=== PATIENT | female | born 1975 | race Caucasian/White ===

== ENCOUNTER 2019-01-02 13:35 | Inpatient (IN) ==
[2019-01-02] MEDS ORDERED: Nitroglycerin 0.4 MG TAB.SUBL SL PRN ×2 (13:42→19:30)
--- NOTE | 2019-01-02 13:44 | Emergency Department Note ---
Disposition Clinical Impression: Chest wall pain, Hypokalemia Disposition: Admitted As Inpatient Condition: Good Time of Disposition: 14:05 Chest Pain HPI - General Chief Complaint: ED Chest Pain Stated Complaint: chest pain Time Seen by Provider: 01/02/19 13:35 Source: patient Mode of arrival: ambulatory Limitations: no limitations Vital Signs Reviewed: Yes Nursing Notes Reviewed: Yes - History of Present Illness HPI Narrative: Patient states she has had chest pain off-and-on for the past 3 days this morning started with some vomiting and her chest pain got worse last 2 hours. H urts if she tries to sit up or move her chest in any direction. Also hurts if she coughs or takes a deep breath. She denies any fevers or chills or any other complaints. Pt complaint: chest pain Onset (ago): day(s) (2 or 3 days) Duration: intermittent Onset: during rest Pain Location: substernal Severity: moderate Quality: sharp Pain Radiation: none Improves with: nothing Worsens with: nothing Associated symptoms: Reports: nausea, vomiting Treatments prior to arrival chest pain: none - Related Data Home Medications Medication Instructions Recorded Confirmed hydrOXYzine HCl [Hydroxyzine HCl] 100 mg PO TID 01/20/16 12/01/17 Bupropion HCl [Wellbutrin Xl] 300 mg PO HS 05/28/16 12/01/17 EPINEPHrine [Epipen] 0.3 mg IM ONCE PRN 05/28/16 12/01/17 Escitalopram [Lexapro] 20 mg PO HS 05/28/16 12/01/17 Metoprolol XL (24 HR) Succ [Toprol 25 mg PO HS 05/28/16 12/01/17 Xl] Sucralfate [Carafate] 1 gm PO BID 05/28/16 12/01/17 Atorvastatin Calcium [Lipitor] 40 PO HS 01/02/19 Buprenorphine HCl/Naloxone HCl 1 each SL DAILY 01/02/19 01/02/19 [Suboxone 2 mg-0.5 mg Sl Film] Buspirone HCl [Buspar] 15 mg PO 01/02/19 Previous Rx's Medication Instructions Recorded Albuterol Sulfate [Albuterol 1 - 2 puff IH Q4HR PRN #1 03/06/15 Inhaler] [email or web address] SUMAtriptan succinate [Imitrex] 25 mg PO ONCE PRN #4 tablet 10/26/16 Ciprofloxacin HCl [Cipro] 500 mg PO DAILY 10 Days #10 tablet 01/31/18 Allergies Allergy/AdvReac Type Severity Reaction Status Date / Time Benzonatate Allergy Palpitation Verified 01/02/19 13:37 [From Tessalon Perles] s diphenhydramine Allergy Hives Verified 01/02/19 13:37 [From Benadryl] Penicillins [PCN] Allergy Anaphylaxis Verified 01/02/19 13:37 red dye Allergy Hives Verified 01/02/19 13:37 aspirin [ASA] AdvReac Nausea Verified 01/02/19 13:37 clindamycin AdvReac joint Verified 01/02/19 13:37 swelling nicotine AdvReac Rash Verified 01/02/19 13:37 sertraline [From Zoloft] AdvReac Rash Verified 01/02/19 13:37 All systems ED: reviewed and negative except as stated. Review of Systems: As Per HPI Constitutional: Denies: fever, chills, weakness, weight change Eyes: Denies: eye pain, eye discharge, vision change ENT ED: Denies: ear pain, throat pain, dental pain, hearing loss, epistaxis, congestion, dysphagia Cardiovascular: Reports: as per HPI, chest pain Respiratory: Denies: cough, dyspnea, wheezes, hemoptysis, stridor Gastrointestinal: Reports: as per HPI, nausea, vomiting Genitourinary: Denies: dysuria, frequency, hematuria, discharge Musculoskeletal: Denies: back pain, neck pain, arthralgia, myalgia Integumentary: Denies: rash, abrasion, lesions Neurological: Denies: headache, weakness, numbness, paresthesias, confusion, abnormal gait, vertigo Psychiatric: Denies: anxiety, depression, suicidal thoughts, homicidal thoughts, auditory hallucinations, visual hallucinations Endocrine: Denies: fatigue Hematological/Lymphatic: Denies: easy bleeding, easy bruising Allergic/Immunologic: Denies: facial swelling, urticaria Chest Pain PMH - Past Medical History Medical history: Reports: asthma, COPD, other Surgical history: Reports: appendectomy, , hysterectomy, knee replacement Psychiatric history: Reports: anxiety, bipolar, depression, PTSD PROC TECH history: Reports: bilateral tubal ligation - Social History Smoking Status: Current every day smoker Alcohol use: Reports: none Drug use: Reports: none Physical Exam - General Limitations: no limitations General appearance: alert, in no apparent distress - Head Head exam: atraumatic, normocephalic, normal inspection - Eye Eye exam: Present: normal appearance, PERRL, EOMI - ENT ENT exam: normal exam, normal oropharynx, mucous membranes moist - Neck Neck exam: Present: normal inspection, full ROM, trachea midline - Chest Chest inspection: Present: normal inspection, symmetric chest wall rise, tenderness (Chest pain is 100% reproducible with deep breathing or palpation and movement.) - Respiratory Respiratory exam: Present: normal lung sounds bilaterally - Cardiovascular Cardiovascular exam: Present: regular rate, normal rhythm - Abdominal Exam Abdominal exam: Present: soft, Non-Tender. Absent: tenderness, distention, guarding, rebound, rigidity - Extremities Exam Extremities exam: Present: normal inspection, full ROM. Absent: tenderness, pedal edema - Back Exam Back exam: Present: normal inspection, full ROM. Absent: tenderness - Neurological Exam Neurological exam: Present: alert, oriented X3 - Psychiatric Psychiatric exam: Present: normal affect, normal mood - Skin Skin exam: Present: warm, dry, intact, normal color Chest Pain - MDM Narrative Medical decision making narrative: I reviewed the patient's medication list Case was discussed with Dr. Alford's who has graciously accepted admission After being here for approximately an hour says she fell 3 days ago mass or chest pain started and she has some paresthesias in her right leg. She denies any leg pain or hip pain or back pain. The patient is very nonspecific and changes her story frequently. I did order a CAT scan of her head since she said she fell and hit her head and it is negative. I do not currently appreciate any neurovascular deficits in lower extremities - Lab Data Lab results reviewed: Yes I reviewed the patient's lab results. - Radiology Data Radiology results reviewed: Yes I reviewed the patient's radiology results. - EKG Data EKG attestation: Yes I reviewed and interpreted this EKG. EKG results narrative: EKG shows normal sinus rhythm rate 97 bpm IN interval is 189 ms QRS duration 94 ms QTQTC intervals 382 and 486 ms respectively R axis of [address] elevation. Abnormalities in the t waves and ST depression noted.
[2019-01-02] MEDS ORDERED: 0.9 % Sodium Chloride 1,000 ML IVC SCH (13:45)
[2019-01-02 13:58] LABS: Basophils # 0.1 K/mcL (0.0-0.2); Basophils % 0.5 %; Eosinophils % 0.1 %; Hemoglobin 14.4 g/dL (11.5-15.4); Immature Granulocytes % 0.6 % (0-4); Lymphocytes # 2.3 K/mcL (0.6-4.6); Lymphocytes % 23.7 %; Mean Corpuscular Hemoglobin 28.7 pg (28.0-33.3); Mean Corpuscular Volume 79.8 fL (83.0-100.0); Mean Platelet Volume 9.2 fL (9.4-12.4); Monocytes # 0.6 K/mcL (0.0-1.3); Monocytes % 5.9 %; Neutrophils # 6.6 K/mcL (1.6-8.9); Platelet Count 316 K/mcL (140-400); Red Blood Count 5.01 M/mcL (3.82-4.97); Red Cell Distribution Width 13.5 % (11.5-14.5); Segmented Neutrophils % 69.2 %; White Blood Count 9.6 K/mcL (4.3-11.1)
[2019-01-02 14:06] LABS: INR 1.1; Prothrombin Time 12.9 Seconds (9.4-12.1)
[2019-01-02 14:09] LABS: Activated Partial Thrombo Time 35.2 Seconds (26.0-36.0)
[2019-01-02 14:19] LABS: Alanine Aminotransferase 19 Units/L (7-52); Albumin 3.6 g/dL (3.5-5.7); Albumin/Globulin Ratio 1.2 (1.1-2.2); Alkaline Phosphatase 70 Units/L (34-104); Aspartate Amino Transferase 21 Units/L (13-39); BUN/Creatinine Ratio 15 (6-26); Bilirubin,Total 0.4 mg/dL (0.3-1.0); Blood Urea Nitrogen 10 mg/dL (6-20); Calcium 8.8 mg/dL (8.6-10.3); Carbon Dioxide 22 mEq/L (23-29); Chloride 99 mEq/L (98-107); Globulin 2.9 g/dL (2.4-3.5); Glucose 169 mg/dL (70-105); Osmolality,Calculated 279 (280-300); Sodium 133 mEq/L (136-145); Total Protein 6.5 g/dL (6.4-8.9); Troponin I < 0.03 ng/mL (< 0.04); eGFR For African Americans > 60 (> 60); eGFR For Non-African Americans > 60 (> 60)
[2019-01-02 14:40] LABS: Bilirubin,Urine Small (Negative); Blood,Urine Moderate (Negative); Clarity,Urine Cloudy (Clear); Color,Urine Dark Yellow (Yellow); Glucose,Urine (UA) Normal (Normal); Ketones,Urine Trace mg/dL (Negative); Leukocyte Esterase,Urine Small (Negative); Nitrite,Urine Negative (Negative); PH,Urine 6.5 pH Units (5.0-8.0); Protein,Urine 100 mg/dL (Neg-Trace); Urobilinogen,Urine Normal (Normal)
[2019-01-02 14:47] LABS: Squamous Epithelial Cell,Urine Few per lpf (None-Few); WBC,Urine TNTC per hpf (0-3)
[2019-01-02 14:48] LABS: Bacteria,Urine Moderate per hpf (None-Few)
[2019-01-02] MEDS ORDERED: Naloxone 0.4 MG/ML INJ IVP PRN (19:30)
[2019-01-02] MEDS ORDERED: SUMAtriptan succinate 25 MG TABLET PO PRN (19:30)
[2019-01-02] MEDS ORDERED: Metoprolol XL (24 HR) Succ 25 MG TAB.ER.24H PO SCH (21:00)
[2019-01-02] MEDS: BuPROPion XL (24 HR) 150 MG TABLET PO SCH (21:03)
[2019-01-02] MEDS: Sucralfate 1 GM TABLET PO SCH (21:04)
[2019-01-03 07:35] LABS: Basophils # 0.1 K/mcL (0.0-0.2); Basophils % 0.6 %; Eosinophils # 0.1 K/mcL (0.0-0.6); Eosinophils % 0.8 %; Hematocrit 39.2 % (35.3-44.9); Hemoglobin 13.7 g/dL (11.5-15.4); Immature Granulocytes % 0.6 % (0-4); Lymphocytes # 3.7 K/mcL (0.6-4.6); Lymphocytes % 42.2 %; Mean Corpuscular HGB Conc 34.9 g/dL (31.6-35.5); Mean Corpuscular Hemoglobin 28.2 pg (28.0-33.3); Mean Corpuscular Volume 80.7 fL (83.0-100.0); Mean Platelet Volume 9.8 fL (9.4-12.4); Monocytes # 0.6 K/mcL (0.0-1.3); Monocytes % 7.2 %; Neutrophils # 4.2 K/mcL (1.6-8.9); Platelet Count 340 K/mcL (140-400); Red Blood Count 4.86 M/mcL (3.82-4.97); Red Cell Distribution Width 13.5 % (11.5-14.5); Segmented Neutrophils % 48.6 %; White Blood Count 8.7 K/mcL (4.3-11.1)
[2019-01-03 08:03] LABS: BUN/Creatinine Ratio 16 (6-26); Blood Urea Nitrogen 9 mg/dL (6-20); Calcium 8.5 mg/dL (8.6-10.3); Carbon Dioxide 24 mEq/L (23-29); Chloride 104 mEq/L (98-107); Glucose 133 mg/dL (70-105); Osmolality,Calculated 285 (280-300); Potassium 2.3 mEq/L (3.5-5.1); Sodium 137 mEq/L (136-145); eGFR For African Americans > 60 (> 60); eGFR For Non-African Americans > 60 (> 60)
[2019-01-03] MEDS ORDERED: Potassium Chloride 40 MEQ, Lidocaine 1% 2 ML in D5% in Water 500 ML IVPB ONE ×2 (08:21→19:13)
[2019-01-03] MEDS: Sucralfate 1 GM TABLET PO SCH ×2 (08:59→19:57)
[2019-01-03] MEDS: 0.9 % Sodium Chloride 1,000 ML IVC SCH ×2 (09:24→17:38)
--- NOTE | 2019-01-03 11:06 | Internal Med History&Physical ---
Date of Encounter: 01/03/19 Time of Encounter: 10:00 Assessment and Plan (1) Hypokalemia Current visit: Yes Status: Acute Suspect due to GI loss from vomiting and diarrhea. Supplemental potassium has been ordered (2) Syncope Current visit: Yes Status: Acute Blood pressure borderline low. Toprol has been discontinued. IV fluids with potassium have been ordered. Orthostatic vital signs will be checked. Qualifiers: Syncope type: unspecified Qualified Code(s): R55 - Syncope and collapse (3) Hypertension Current visit: Yes Status: Chronic Blood pressure now borderline low. Discontinue Toprol and give IV fluids. Qualifiers: Hypertension type: essential hypertension Qualified Code(s): I10 - Es sential (primary) hypertension (4) Weight loss Current visit: Yes Status: Acute TSH and CT of chest/abdomen/pelvis have been ordered. (5) COPD (chronic obstructive pulmonary disease) Current visit: Yes Status: Chronic Room air oximetry will be checked on 6 minute walk prior to discharge. Qualifiers: COPD type: unspecified COPD Qualified Code(s): J44.9 - Chronic obstructive pulmonary disease, unspecified (6) Chest wall pain Current visit: Yes Status: Acute NSAIDs will be ordered. (7) Microcytosis Current visit: Yes Status: Acute Iron profile will be ordered. Internal Medicine - H&P: HPI Chief complaint: Chest pain, dyspnea, syncope Admitted From: Emergency Dept Plans for Post Hospital Care: Home History of present illness: Ms. Carolina is a 43 year old female who came to emergency room stating she had increased dyspnea for the past week with marked worsening earlier the day of admission. She reports some discomfort in her chest that she describes as a sharp pain worse with coughing or deep inspiration. She has had minimal cough. She reports vomiting approximately 3 times earlier the day of admission and a small amount of diarrhea the last 3 days. She was evaluated in emergency room and was found to have severe hypokalemia with potassium level 2.0. She was [facility] for ongoing care needs. She reports syncopal episodes 1-2 times per week over the last 6 weeks. She has no premonition except she feels "tired" prior to the syncope. She reports her most recent episode was 3 days prior to admission which caused her to fall on the floor at home. She reports having a headache and left shoulder discomfort with right leg numbness following the event. She denies leg weakness. Her neurologic history is pertinent for having a "stroke" 2007 but full recovery within the next 2 years and no residual deficits. She denies known seizures. Past Med Surg Social Fam HX - Past Medical History Medical history: asthma, COPD, other Additional medical history: left knee problem and needs replacement Psychiatric history: anxiety, bipolar, depression, PTSD - Past Surgical History Surgical History: appendectomy, , hysterectomy, knee replacement Additional surgical history: tubal ligation. kidney stones. tooth extraction. tonsillectomy. facial reconstruction. ACL repair. sinus surgery. lt knee surgery uterine cancer with hyst - Social History Smoking Status: Current every day smoker Smokeless Tobacco Status: No Alcohol use: none Drug use: other Internal Medicine - H&P: Meds Albuterol Sulfate [Albuterol Inhaler] 1 - 2 puff IH Q4HR PRN #1 [email or web address] 03/06 [Rx] hydrOXYzine HCl [Hydroxyzine HCl] 100 mg PO TID 01/20/16 [History] Bupropion HCl [Wellbutrin Xl] 300 mg PO HS 05/28/16 [History] EPINEPHrine [Epipen] 0.3 mg IM ONCE PRN 05/28/16 [History] Escitalopram [Lexapro] 20 mg PO HS 05/28/16 [History] Metoprolol XL (24 HR) Succ [Toprol Xl] 25 mg PO HS 05/28/16 [History] Sucralfate [Carafate] 1 gm PO BID 05/28/16 [History] SUMAtriptan succinate [Imitrex] 25 mg PO ONCE PRN #4 tablet 10/26/16 [Rx] Ciprofloxacin HCl [Cipro] 500 mg PO DAILY 10 Days #10 tablet 01/31/18 [Rx] Atorvastatin Calcium [Lipitor] 40 PO HS 01/02/19 [History] Buprenorphine HCl/Naloxone HCl [Suboxone 2 mg-0.5 mg Sl Film] 1 each SL DAILY 01/02/19 [History] Buspirone HCl [Buspar] 15 mg PO 01/02/19 [History] Allergy/AdvReac Type Severity Reaction Status Date / Time Benzonatate Allergy Palpitation Verified 01/02/19 13:37 [From Samuel Blank] s diphenhydramine Allergy Hives Verified 01/02/19 13:37 [From Benadryl] Penicillins [PCN] Allergy Anaphylaxis Verified 01/02/19 13:37 red dye Allergy Hives Verified 01/02/19 13:37 aspirin [ASA] AdvReac Nausea Verified 01/02/19 13:37 clindamycin AdvReac joint Verified 01/02/19 13:37 swelling nicotine AdvReac Rash Verified 01/02/19 13:37 sertraline [From Zoloft] AdvReac Rash Verified 01/02/19 13:37 All Systems PM: A 10-system review of systems was performed and is negative for pertinent findings except as documented above in the HPI. Review of systems: Gen.: She states her weight has decreased from 265 pounds one year ago to present weight approximately 190. Weight loss was unintentional. Cardiovascular: She has history of hypertension and reports IL approximately 2009. She states a stress test was done post IL with no further intervention recommended. She reports predictable chest pain on exertion that she describes as a "elephant on my chest". She denies DVT or pulmonary embolus Respiratory: She has smoked since age 27 up to 2 packs per day. She reports being diagnosed with COPD/emphysema and asthma. She does not use home oxygen. GI: She reports stomach ulcers found on EGD in 2000. She takes Carafate and omeprazole. She reports asymptomatic gallstones. She denies disorders of her liver or exocrine pancreas : She has had kidney stones in the past requiring surgical removal. She denies other kidney or bladder disorders. Neurologic: As per history of present illness Endocrine: She reports gestational diabetes. She denies known thyroid disease. She is on Lipitor but does not know her lipid status. Hematology/oncology: She reports uterine cancer with hysterectomy followed by XRT at age 22. She is presumed cancer free. She denies other internal malignancies or blood disorders. Psychiatric: She reports PTSD and bipolar disorder. [place] skeletal: She has had left knee surgery and right foot fracture requiring surgical repair. She denies gout or other bone joint or muscle disorders. - Constitutional Vitals: Temp Pulse Resp BP Pulse Ox 98.5 F 68 16 94/63 98 01/03/19 10:43 01/03/19 10:43 01/03/19 10:43 01/03/19 10:43 01/03/19 10:43 Exam: Gen.: She is a well-developed well-nourished female lying in bed who appears in no severe distress at present time HEENT: Head is atraumatic and normocephalic. Eyes: EOMI. There is no scleral icterus. Mouth: Mucosa is moist. She is edentulous. Neck: Supple and nontender. There is no thyromegaly or adenopathy noted. Heart: Regular without murmurs gallops or ectopics Chest: She is tender in her chest wall to compression stating "that is the pain" Lungs: No wheezes or crackles are heard. Abdomen: Soft and nontender. No masses or guarding are noted. Extremities: There is no cyanosis edema or clubbing noted. Dorsalis pedis and posterior tibial pulses are trace to 1+ palpable bilaterally. Neurologic: Mental status: She is talkative and a good historian. Cranial nerves: Smile is symmetric. Forehead wrinkles bilaterally. Tongue protrudes midline. EOMI. Motor: There is no pronator drift. Cerebellar: Finger to nose is intact bilaterally. Skin: Warm and dry. She has multiple tattoos. Internal Med - H&P Results - Labs CBC & Chem 7: 01/03/19 07:30 01/03/19 07:30 Labs: Short CBC 01/02/19 01/03/19 Range/Units 13:52 07:30 WBC 9.6 8.7 (4.3-11.1) K/mcL Hgb 14.4 13.7 (11.5-15.4) g/dL Hct 40.0 39.2 (35.3-44.9) % Plt Count 316 340 (140-400) K/mcL Neutrophils # 6.6 4.2 (1.6-8.9) K/mcL BMP 01/02/19 01/03/19 13:52 07:30 Sodium 133 L 137 Potassium 2.0 L* 2.3 L* Chloride 99 104 Carbon Dioxide 22 L 24 BUN 10 9 Creatinine 0.66 0.55 L Glucose 169 H 133 H Calcium 8.8 8.5 L Cardiac Enzymes 01/02/19 01/02/19 01/02/19 Range/Units 13:52 15:37 22:39 Troponin I < 0.03 < 0.03 < 0.03 (< 0.04) ng/mL Liver Function 01/02/19 Range/Units 13:52 Total Bilirubin 0.4 (0.3-1.0) mg/dL AST 21 (13-39) Units/L ALT 19 (7-52) Units/L Alkaline Phosphatase 70 (34-104) Units/L Albumin 3.6 (3.5-5.7) g/dL Urine 01/02/19 Range/Units 14:33 Urine Color Dark Yellow (Yellow) Urine Clarity Cloudy A (Clear) Urine pH 6.5 (5.0-8.0) pH Units Ur Specific [place] 1.020 (1.010-1.025) Urine Protein 100 H (Neg-Trace) mg/dL Urine Glucose (UA) Normal (Normal) mg/dL - Impressions ITS Impressions Chest X-Ray 01/02/19 13:42 IMPRESSION: No acute process. D/ / Pavel Graves MD / Pavel Graves MD Interpreting Provider: Pavel Graves MD Head CT 01/02/19 14:50 IMPRESSION: No acute intracranial abnormality. D/ / Pavel Graves MD / Pavel Graves MD Interpreting Provider: Pavel Graves MD
[2019-01-03 11:09] LABS: Magnesium 1.6 mg/dL (1.6-2.6)
--- NOTE | 2019-01-03 11:11 | Electrocardiograph Report ---
[address] [address] Test Date: 2019-01-02 Pat Name: Mirela Carolina Department: EDP-12 Room: [facility] Gender: F Orientation And Mobility Specialist: : 1975 Requested By: Rommel Call Order Number: [id number] Reading MD: Yg Gray Measurements Intervals [place] Rate: 97 P: 81 SD: 189 QRS: 79 QRSD: 94 T: 266 QT: 382 QTc: 486 Interpretive Statements Sinus rhythm Borderline ST depression, diffuse leads Abnormal T, consider ischemia, diffuse leads Electronically Signed On 01-03-2019 11:09:42 EDT by Yg Gray
[2019-01-03 11:23] LABS: Thyroid Stimulating Hormone 1.297 mcIU/mL (0.340-5.600)
[2019-01-03] MEDS: 0.9 % Sodium Chloride w KCl 20 MEQ/1,000 ML MLS IVC SCH ×2 (12:11→21:43)
[2019-01-03] MEDS: *HR* Enoxaparin 40 MG/0.4 ML SYRINGE SQ SCH (12:11)
--- NOTE | 2019-01-03 14:28 | Electrocardiograph Report ---
[address] [place], [place] [address] Test Date: 2019-01-02 Pat Name: Mirela Carolina Department: 9202 Room: [facility] Gender: F Grade Tamper: [id number] : 1975 Requested By: Rommel Call Order Number: [id number] Reading MD: Fabian Strong Measurements Intervals [place] Rate: 63 P: 68 [place]: 196 QRS: 31 QRSD: 93 T: 93 QT: 425 QTc: 433 Interpretive Statements SINUS RHYTHM LOW QRS VOLTAGE IN PRECORDIAL LEADS ANTEROLATERAL ISCHEMIA Electronically Signed On 01-03-2019 14:27:25 EDT by Fabian Strong
[2019-01-03 17:25] LABS: % Iron Saturation 40 % (15-50); Ferritin 100 ng/mL (10-120); Iron 118 mcg/dL (50-170); Transferrin 212 mg/dL (203-362)
[2019-01-03] MEDS: BuPROPion XL (24 HR) 150 MG TABLET PO SCH (19:57)
[2019-01-04] MEDS: *HR* Enoxaparin 40 MG/0.4 ML SYRINGE SQ SCH (05:47)
[2019-01-04] MEDS: Sucralfate 1 GM TABLET PO SCH ×2 (09:26→19:37)
[2019-01-04] MEDS: 0.9 % Sodium Chloride w KCl 20 MEQ/1,000 ML MLS IVC SCH (11:38)
[2019-01-04 11:53] LABS: BUN/Creatinine Ratio 12 (6-26); Blood Urea Nitrogen 6 mg/dL (6-20); Calcium 8.4 mg/dL (8.6-10.3); Carbon Dioxide 23 mEq/L (23-29); Chloride 109 mEq/L (98-107); Glucose 105 mg/dL (70-105); Osmolality,Calculated 284 (280-300); Potassium 3.4 mEq/L (3.5-5.1); Sodium 138 mEq/L (136-145); eGFR For African Americans > 60 (> 60); eGFR For Non-African Americans > 60 (> 60)
[2019-01-04] MEDS: hydrOXYzine pamoate 25 MG CAPSULE PO PRN ×2 (15:13→23:36)
--- NOTE | 2019-01-04 15:24 | Internal Med Progress Note ---
Date of Encounter: 01/04/19 Time of Encounter: 15:15 - Assessment and plan (1) Hypokalemia Current Visit: Yes Status: Acute Assessment and plan: . Potassium level improved to 3.4. Continue supplemental potassium. Anticipate discharge home tomorrow. (2) Syncope Current Visit: Yes Status: Acute Assessment and plan: January 04. Remain off Toprol. Orthostatic vital signs were unremarkable. Qualifiers: Syncope type: unspecified Qualified Code(s): R55 - Syncope and collapse (3) Hypertension Current Visit: Yes Status: Chronic Assessment and plan: January 04. Blood pressure satisfactory. Remain off Toprol. Qualifiers: Hypertension type: essential hypertension Qualified Code(s): I10 - Essential (primary) hypertension (4) Weight loss Current Visit: Yes Status: Acute Assessment and plan: January 04. TSH and CT scan unremarkable. (5) COPD (chronic obstructive pulmonary disease) Current Visit: Yes Status: Chronic Assessment and plan: January 04. Check room air oximetry on 6 minute walk in a.m. Qualifiers: COPD type: unspecified COPD Qualified Code(s): J44.9 - Chronic obstructive pulmonary disease, unspecified (6) Chest wall pain Current Visit: Yes Status: Acute Assessment and plan: January 04. Continue Naprosyn prn . (7) Microcytosis Current Visit: Yes Status: Acute Assessment and plan: January 04. Iron profile showed iron 118, transferrin saturation 40%, transferrin 212, and ferritin 100. Continue to monitor. (8) UTI (urinary tract infection) Current Visit: Yes Status: Acute Assessment and plan: January 04. Urine culture preliminary report shows gram-negative rods. Start Macrobid with lactobacillus. Qualifiers: Urinary tract infection type: site unspecified Hematuria presence: with hematuria Qualified Code(s): N39.0 - Urinary tract infection, site not specified; R31.9 - Hematuria, unspecified - Subjective Interval history: January 04. She has no new complaints and feels significantly improved. She reports no vomiting but is still having occasional dry heaves - Constitutional Vitals: Temp Pulse Resp BP Pulse Ox 98.2 F 68 20 116/70 98 01/04/19 15:14 01/04/19 15:14 01/04/19 15:14 01/04/19 15:14 01/04/19 15:14 Exam: She is sitting on the side of bed resting comfortably. Her affect is bright and cheerful. She is very talkative and laughing frequently. I reviewed her medications and lab results. Internal Medicine: Result - Labs CBC & Chem 7: 01/03/19 07:30 01/04/19 11:27 Labs: BMP 01/03/19 01/04/19 18:32 11:27 Sodium 138 Potassium 2.7 L 3.4 L D Chloride 109 H Carbon Dioxide 23 BUN 6 Creatinine 0.52 L Glucose 105 Calcium 8.4 L - ABG Interpretation ABG results: PT/INR, D-dimer PT 12.9 Seconds (9.4-12.1) H 01/02/19 13:52 D-Dimer 232 ng/mLFEU (0-500) 01/02/19 13:52 - Impressions Impressions Abdomen/Pelvis CT 01/03/19 10:30 IMPRESSION: No acute process of the chest, abdomen or pelvis. Specifically no finding is seen to explain the patient's reported weight loss. Punctate nonobstructing stones lower pole left kidney. D/ / 01/03/2019 13:59:46 Jeff Martinez MD / gina Interpreting Provider: Jeff Martinez MD Chest CT 01/03/19 10:30 IMPRESSION: No acute process of the chest, abdomen or pelvis. Specifically no finding is seen to explain the patient's reported weight loss. Punctate nonobstructing stones lower pole left kidney. D/ / 01/03/2019 13:59:46 Jeff Martinez MD / gina Interpreting Provider: Jeff Martinez MD Consult Discharge Plan - Plan Referrals: Sofia Nieto CNP [Primary Care Provider] - 1 week
[2019-01-04] MEDS: Nitrofurantoin (BID) 100 MG CAPSULE PO SCH (16:43)
[2019-01-04] MEDS: BuPROPion XL (24 HR) 150 MG TABLET PO SCH (19:37)
[2019-01-04] MEDS: Neosporin OINT 15 GM TUBE TP SCH (19:37)
[2019-01-04] MEDS: Lactobacillus 1 EACH CAP.SPRINK PO SCH (19:37)
[2019-01-05] MEDS: 0.9 % Sodium Chloride w KCl 20 MEQ/1,000 ML MLS IVC SCH ×2 (05:16→05:17)
[2019-01-05] MEDS: *HR* Enoxaparin 40 MG/0.4 ML SYRINGE SQ SCH (05:16)
[2019-01-05 07:31] VITALS: BP 98/58
[2019-01-05] MEDS: Lactobacillus 1 EACH CAP.SPRINK PO SCH (07:36)
[2019-01-05] MEDS: Nitrofurantoin (BID) 100 MG CAPSULE PO SCH (07:37)
[2019-01-05] MEDS: Neosporin OINT 15 GM TUBE TP SCH (07:37)
[2019-01-05] MEDS: Sucralfate 1 GM TABLET PO SCH (07:37)
--- NOTE | 2019-01-05 10:03 | Discharge Summary ---
Orders not resulted at time of discharge: Pending orders 01/02/19 14:33 Culture,Urine [RM] Stat Date of Encounter: 01/05/19 Time of Encounter: 09:54 - Discharge Diagnosis (1) Hypokalemia Priority: Primary Status: Acute (2) Syncope Priority: Secondary Status: Acute Qualifiers: Syncope type: unspecified Qualified Code(s): R55 - Syncope and collapse (3) Hypertension Priority: Secondary Status: Chronic Qualifiers: Hypertension type: essential hypertension Qualified Code(s): I10 - Essential (primary) hypertension (4) Weight loss Priority: Secondary Status: Acute (5) COPD (chronic obstructive pulmonary disease) Priority: Secondary Status: Chronic Qualifiers: COPD type: unspecified COPD Qualified Code(s): J44.9 - Chronic obstructive pulmonary disease, unspecified (6) Chest wall pain Priority: Secondary Status: Acute (7) Microcytosis Priority: Secondary Status: Acute (8) UTI (urinary tract infection) Priority: Secondary Status: Acute Qualifiers: Urinary tract infection type: site unspecified Hematuria presence: with hematuria Qualified Code(s): N39.0 - Urinary tract infection, site not specified; R31.9 - Hematuria, unspecified Hospital course: Ms. Carolina is a 43 year old female who came to emergency room stating she had increased dyspnea for the past week with marked worsening earlier the day of admission. She reports some discomfort in her chest that she describes as a sharp pain worse with coughing or deep inspiration. She has had minimal cough. She reports vomiting approximately 3 times earlier the day of admission and a small amount of diarrhea the last 3 days. She was evaluated in emergency room and was found to have severe hypokalemia with potassium level 2.0. She was admitted to [facility] for ongoing care needs. Initial orders were written by the emergency room physician. I saw her on January 03 and performed a history and physical. She was given significant supplemental potassium during her hospital stay. Potassium level had risen to 3.4 by day of discharge. She reported no vomiting when I saw her the morning of January 05. She reported the numbness in her right leg was improving. She will continue with supplemental potassium at a dose of 10 mEq twice a day for 7 additional days at discharge. Her PCP can monitor labs and prescribe additional treatment as needed. Blood pressure was borderline low on admission. Toprol was discontinued and IV fluids were ordered. Orthostatic vital signs January 04 showed no change in blood pressure or heart rate from lying to standing positions. Her blood pressure returned to a more acceptable level. She will remain off Toprol at discharge. TSH returned normal at 1.297. Chest and abdomen/pelvis CT done to further evaluate weight loss showed no acute process. Microcytosis workup showed iron 118, transferrin saturation 40%, transferrin 212, and ferritin 100. B12 and folate were also normal at 375 and 8.0 respectively. Her PCP can continue to monitor. Preliminary urine culture report on day of discharge showed gram-negative rods. She was started empirically on Macrobid 100 mg twice a day and will continue this for 3 additional days at home with lactobacillus. Her PCP can obtain final culture and sensitivity report and determine if additional therapy is indicated. On January 05 she felt stable for discharge home. She will follow with her PCP Sofia Nieto CNP within 1 week. Room air oximetry will be checked on a 6 minute walk prior to discharge. - Time Spent with Patient Total time spent providing and/or coordinating discharge services: - Discharge Medications Prescriptions: New Lactobacillus [Culturelle] 1 each PO BID #6 cap.sprink Nitrofurantoin (BID) [Macrobid] 100 mg PO BIDWM #6 capsule Potassium Chloride 10 meq PO BIDWM #14 tab.er.prt Continued Albuterol Sulfate [Albuterol Inhaler] 1 - 2 puff IH Q4HR PRN #1 hfa.aer.ad PRN Reason: Shortness Of Breath EPINEPHrine [Epipen] 0.3 mg IM ONCE PRN PRN Reason: Allergic Reaction Escitalopram [Lexapro] 40 mg PO HS Sucralfate [Carafate] 1 gm PO BID Bupropion HCl [Wellbutrin Xl] 300 mg PO HS SUMAtriptan succinate [Imitrex] 25 mg PO ONCE PRN #4 tablet PRN Reason: Migraine Headache hydrOXYzine HCl [Hydroxyzine HCl] 200 mg PO TID Buspirone HCl [Buspar] 15 mg PO Buprenorphine HCl/Naloxone HCl [Suboxone 2 mg-0.5 mg Sl Film] 1 each SL DAILY Atorvastatin Calcium [Lipitor] 40 PO HS Eszopiclone [Lunesta] 3 mg PO HS Discontinued Metoprolol XL (24 HR) Succ [Toprol Xl] 25 mg PO HS Ciprofloxacin HCl [Cipro] 500 mg PO DAILY 10 Days #10 tablet Home Medications: Albuterol Sulfate [Albuterol Inhaler] 1 - 2 puff IH Q4HR PRN #1 hfa.aer.ad 03/06/15 [Rx] hydrOXYzine HCl [Hydroxyzine HCl] 200 mg PO TID 01/20/16 [History] Bupropion HCl [Wellbutrin Xl] 300 mg PO HS 05/28/16 [History] EPINEPHrine [Epipen] 0.3 mg IM ONCE PRN 05/28/16 [History] Escitalopram [Lexapro] 40 mg PO HS 05/28/16 [History] Sucralfate [Carafate] 1 gm PO BID 05/28/16 [History] SUMAtriptan succinate [Imitrex] 25 mg PO ONCE PRN #4 tablet 10/26/16 [Rx] Atorvastatin Calcium [Lipitor] 40 PO HS 01/02/19 [History] Buprenorphine HCl/Naloxone HCl [Suboxone 2 mg-0.5 mg Sl Film] 1 each SL DAILY 01/02/19 [History] Buspirone HCl [Buspar] 15 mg PO 01/02/19 [History] Eszopiclone [Lunesta] 3 mg PO HS 01/03/19 [History] Lactobacillus [Culturelle] 1 each PO BID #6 cap.sprink 01/05/19 [Rx] Nitrofurantoin (BID) [Macrobid] 100 mg PO BIDWM #6 capsule 01/05/19 [Rx] Potassium Chloride 10 meq PO BIDWM #14 tab.er.prt 01/05/19 [Rx] Allergies/Adverse Reactions: Allergy/AdvReac Type Severity Reaction Status Date / Time Benzonatate Allergy Palpitation Verified 01/02/19 13:37 [From Tessalon Perles] s diphenhydramine Allergy Hives Verified 01/02/19 13:37 [From Benadryl] Penicillins [PCN] Allergy Anaphylaxis Verified 01/02/19 13:37 red dye Allergy Hives Verified 01/02/19 13:37 aspirin [ASA] AdvReac Nausea Verified 01/02/19 13:37 clindamycin AdvReac joint Verified 01/02/19 13:37 swelling nicotine AdvReac Rash Verified 01/02/19 13:37 sertraline [From Zoloft] AdvReac Rash Verified 01/02/19 13:37 Date of admission: 01/03/19 10:31 Primary care physician: Sofia Nieto Consults: 01/02/19 17:51 Consult to Literature Professor [CONS] Routine Reason for SW Consult: being evicted from home 01/02/19 19:30 Consult to Physical Therapy [CONS] Routine Comment: Evaluate, develop and implement POC Reason for Consult: fall, weakness Does patient have active BEDREST order?: No Is patient medically & hemodynamically stable?: Yes Patient assessed for mobility or mobilized this visit?: Yes - Constitutional Vitals: Temp Pulse Resp BP Pulse Ox 98.4 F 72 16 98/58 99 01/05/19 07:29 01/05/19 07:29 01/05/19 07:29 01/05/19 07:29 01/05/19 07:29 - Patient Status Disposition: Home, Self-Care Condition: Good - Discharge Instructions Follow Up With: Sofia Nieto, TUNNELLER [Primary Care Provider] - 1 week - Diet and Activity Activity: resume usual activities as tolerated Diet: advance to your usual diet
== END 2019-01-05 11:58 | disposition home or self-care (01) | DRG 425 ==
LOC: EMEROOPIK 13:35 → INPPIK 13:35
PROVIDERS: ADMIT Internal Medicine; ATTEND Internal Medicine